=== PATIENT | male | born 2005 | race Two or more races ===

== ENCOUNTER 2024-10-29 12:50 | Emergency (ER) | payer MEDICAID, SELFPAY ==
--- NOTE | 2024-10-29 13:00 | EDNOTE_ITS ---
<Statement entered by Kaykay Diaz MD - 10/29/24 17:44> As co-signing physician, I was present and available for consult prn. I concur with the plan and care as documented by the midlevel provider. ED General RME/HPI General Chief complaint: Seizure Stated complaint: SEIZURE Time Seen by Provider: 10/29/24 12:53 Arrival date/time: 10/29/24 12:50 RME / HPI RME / HPI narrative: 18-year-old male patient was brought in by EMS for evaluation regarding possible tonic-clonic seizure. According to EMS patient was noted to be having tonic- clonic seizure lasting for 10 to 20 minutes per mom while inside the vehicle. When EMS arrived patient is awake however having episode of confusion. When I talked to the patient sometimes patient answers correctly sometimes having bizarre thoughts. Denies any pain. Denies any urinary incontinence. Denies any head injury. Denies any laceration or abrasion to the tongue. Patient is not taking any medication for seizure no history of seizure. Patient admits of abusing Xanax earlier today patient also admits of using marijuana and vaping nicotine.. Related Data Allergies Allergy/AdvReac Type Severity Reaction Status Date / Time NKA* Allergy Uncoded 12/13/16 18:58 Review of Systems Review of Systems Narrative Review of Systems: Review of system reviewed and within normal limits except mentioned in HPI ED Exam Narrative Physical exam: VITAL SIGNS: Reviewed. GENERAL APPEARANCE: Alert and oriented x 2 follows simple commands, no acute distress, bizarre thoughts HEAD AND FACE: Non-traumatic. ENT: PERRL, pink conjunctivitis, eyelid no trauma, Mucous membrane moist. NECK: Supple, nontender, no nuchal rigidity. CHEST: No tenderness, no crepitus, no paradoxical movement, no retractions. LUNGS: Clear, well ventilated, symmetric, no rales, no wheezing, no ronchi, no stridor, good breath sounds bilaterally. HEART: Regular rate, regular rhythm, no murmur, no gallops. ABDOMEN: Soft, positive bowel sounds, nondistended, no guarding, nontender, no rebound, no masses, RECTAL: Deferred. GENITAL: Deferred. NEUROLOGICAL: Gross motor function intact sensory function intact, Appropriate for age. MUSCULOSKELETAL: low back nontender, full range of motion. EXTREMITIES: Nontender, full range of motion. SKIN: Color pink, dry, no rash, no lacerations, no abrasions, no contusions. LYMPHATICS: Deferred. Course Quality Measures none Orders Category Date Time Status Acetaminophen Stat Lab 10/29/24 13:20 Completed Alcohol, Blood Medical Stat Lab 10/29/24 13:20 Completed CBC Stat Lab 10/29/24 13:20 Completed CMP [Comprehensive Metabolic Panel] Stat Lab 10/29/24 13:20 Completed Drug Screen,Urine Stat Lab 10/29/24 12:58 Ordered Salicylate Stat Lab 10/29/24 13:20 Completed Urinalysis Stat Lab 10/29/24 12:58 Ordered Ondansetron Inj [Zofran Inj] Med 10/29/24 13:53 Discontinued 4 mg IV X1 ONE Ringers Lactated 1000 ml [Lactated Ringers] 1,000 ml Med 10/29/24 13:54 Discontinued IV 999 mls/hr Vital Signs Vital signs: Vital Signs Temperature 98.0 F 10/29/24 13:01 Pulse Rate 96 10/29/24 13:01 Respiratory Rate 18 10/29/24 13:01 Blood Pressure 118/69 10/29/24 13:01 Pulse Oximetry (%) 97 10/29/24 13:01 Oxygen Delivery Method Room Air 10/29/24 13:01 Critical Care Time Critical Care Time Critical Care Time: No Discharge Plan Plan Patient Disposition: HOME (Self Care) Disposition Comment: Stable Prescriptions/Referrals Referrals: No Primary/Family,Physician [Primary Care Provider] - In 1 week Problem List Clinical Impression: Drug abuse Patient/Caregiver Discharge Instructions Discharge Activity: activity as tolerated Education Materials: ED Drug Abuse Additional Instructions: Thank you for the opportunity for serving you today. You are stable for discharged . You are advised to: Follow-up with your PCP in 1 to 2 days Return to ED for worsening of symptoms Increase oral fluids Please stop abusing Xanax, and marijuana Print Language: Tamazight Stand Alone Forms: Monse Award Info., Patient Portal Info Letter ROGELIO/ADDIE Supervising Physician ROGELIO/ADDIE Supervising Physician: MD Emily [facility] Patient Acuity Narrative: 18-year-old male patient was brought in by EMS for evaluation regarding possible tonic-clonic seizure. According to EMS patient was noted to be having tonic- clonic seizure lasting for 10 to 20 minutes per mom while inside the vehicle. When EMS arrived patient is awake however having episode of confusion. When I talked to the patient sometimes patient answers correctly sometimes having bizarre thoughts. Denies any pain. Denies any urinary incontinence. Denies any head injury. Denies any laceration or abrasion to the tongue. Patient is not taking any medication for seizure no history of seizure. Patient admits of abusing Xanax earlier today patient also admits of using marijuana and vaping nicotine. Patient received IV fluids, and was given Zofran. Patient told me that he wanted to go home, and her girlfriend is going to bring him home, he is not having any symptoms he is alert and oriented x 4 answers question appropriately. Patient was advised to stop abusing Xanax marijuana and nicotine. Patient agrees with the plan Clinical Information Provided by: patient and family Medical Records reviewed None Labs/Rad/Tests considered, not ordered Describe: Plan Chronic Illness/Social Conditions Explain: Drug abuse Labs Lab(s) Interpretation(s): Patient's workup today all came back unremarkable CMP unremarkable CBC no leukocytosis patient is refusing to give us urine sample. Medication Administration(s) Medication Administration History Discontinued Medications Lactated Ringer's (Lactated Ringers) 1,000 mls @ 999 mls/hr IV .Q1H1M ONE Stop: 10/29/24 14:54 Last Admin: 10/29/24 14:20 Dose: 999 mls/hr Documented By: DO Ondansetron HCl (Ondansetron Inj 2 Mg/Ml Inj 2 Ml) 4 mg IV X1 ONE; Protocol Stop: 10/29/24 13:54 Last Admin: 10/29/24 14:20 Dose: 4 mg Documented By: DO Diagnosis Differential Diagnosis ED Complaint MDM: Dehydration, Xanax abuse, marijuana abuse, generalized seizure, Diagnoses ruled out: Xanax abuse,
[2024-10-29 13:01] VITALS: BP 118/69; PULSE 96; RESP 18; TEMP 36.7; O2SAT 97; BMI 21.5
[2024-10-29 13:02] VITALS: PULSE 125; RESP 18; O2SAT 99
[2024-10-29 13:46] LABS: Basophils % (Auto) 0 % (0-2.5); Eosinophils % (Auto) 0 % (0-10); Hematocrit 41.1 % (41.0-53.0); Hemoglobin 14.6 g/dL (13.5-16.0); Immature Granulocytes % (Auto) 1 % (0-0); Immature Granulocytes Auto 0.04 Thou/mm3 (0.00-0.00); Lymphocytes # (Auto) 1.5 Thou/mm3 (1.0-4.8); Lymphocytes % (Auto) 18 % (10-50); Mean Corpuscular HGB Conc 35.5 g/dl (31.0-37.0); Mean Corpuscular Hemoglobin 30.1 pg (25.0-35.0); Mean Corpuscular Volume 85 fL (80-100); Monocytes # (Auto) 0.4 Thou/mm3 (0.0-0.8); Monocytes % (Auto) 5 % (0-12); Neutrophils # (Auto) 6.1 Thou/mm3 (1.8-7.7); Neutrophils % (Auto) 76 % (37-80); Nucleated Red Blood Cell % 0 /100 WBC (0); Platelet Count 297 Thou/mm3 (140-440); RDW Standard Deviation 35.8 fL (35.1-43.9); Red Blood Count 4.85 Miln/mm3 (4.50-5.90)
[2024-10-29 14:16] LABS: Acetaminophen < 2.0 mcg/mL (10.0-20.0); Alanine Aminotransferase 11 U/L (10-49); Albumin, Serum 4.9 gm/dL (3.5-5.0); Albumin/Globulin Ratio 1.8 (1.2-2.2); Alcohol, Blood Medical < 3.0 mg/dL (0-10.0); Alkaline Phosphatase 70 U/L (46-116); Anion Gap 11 (7-16); Aspartate Amino Transferase 20 U/L (0-34); BUN/Creatinine Ratio 11 Ratio (12-20); Bilirubin,Total 0.6 mg/dL (0.3-1.2); Blood Urea Nitrogen 12 mg/dL (9-23); Calcium 9.3 mg/dL (8.3-10.6); Calcium (Corrected) 9.3 mg/dL (8.5-10.1); Carbon Dioxide 23.2 mMol/L (20.0-31.0); Chloride 106 mMol/L (98-107); Creatinine (Component) 1.1 mg/dL (0.6-1.3); Estimated Creatinine Clearance 103.1 mL/min (>60); Globulin 2.7 gm/dL (2.3-3.5); Glucose 156 mg/dL (74-106); Osmolality,Calculated 282 (275-295); Potassium 4.2 mMol/L (3.4-5.1); Salicylate < 3.0 mg/dL; Sodium 140 mMol/L (136-145); Total Protein 7.6 gm/dL (5.7-8.2); eGFR > 60 See Note
[2024-10-29 14:17] VITALS: BP 127/65; PULSE 91; RESP 16; TEMP 36.7; O2SAT 99
[2024-10-29] MEDS: ONDANSETRON INJ 2 MG/ML INJ 2 ML 4 MG IV (14:20)
[2024-10-29] MEDS: RINGERS LACTATED 1000 ML 1,000 ML 999 ML IV (14:20)
[2024-10-29 15:37] VITALS: BP 107/54; PULSE 74; RESP 14; TEMP 37.1; O2SAT 95
== END 2024-10-29 16:00 | disposition home or self-care (01) ==
PROVIDERS: Nurse Practitioner Family; Emergency Provider Emergency Medicine
DX: F13.10 Sedative, hypnotic or anxiolytic abuse, uncomplicated (principal); F12.10 Cannabis abuse, uncomplicated; R56.9 Unspecified convulsions
CPT/HCPCS: 36415; 80053; 80307; 80320; 80329; 81001; 85025; 96361; 96374; 99284; J2405; J7120; G0480